=== PATIENT | female | born 1965 | race Caucasian/White ===

== ENCOUNTER 2016-09-13 00:38 | Emergency (ER) | payer OTHER ==
[~2016-09-13 00:38] MED LIST: ALBUTEROL17 GM INH; ASPIRIN81 M1 PO; AUGMENTIN875 MG PO; FLEXERIL10 M1 PO; FLEXERIL10 MG PO; LORTAB 10-5001 EACH PO; LORTAB 7.5-3251 EACH; MEDROL PO; MOBIC PO; NAPROSYN500 MG PO; NO MEDICATIONS; PHENERGAN25 MG PO; PREDNISONE PO; PRILOSEC20 M1 PO; TALWIN NX TABLE1 TAB PO; TYLENOL #3 PO; TYLOX PO; VICODIN PO; VOLTAREN50 MG PO; Z-PACK PO; ZANAFLEX4 M1 PO
== END 2016-09-13 01:03 | disposition home or self-care (01) ==
LOC: SED 00:38
DX: G56.01 Carpal tunnel syndrome, right upper limb (principal)
CPT/HCPCS: 29125; 99283